=== PATIENT | male | born 1970 | race Caucasian/White ===

== ENCOUNTER → 2020-07-21 10:06 | Outpatient (BNVA) | payer OTHER, SELFPAY | PROVIDERS: Family Provider Nurse Practitioner Family; Visit Provider Nurse Practitioner Family | DX: R53.83 Other fatigue (principal); D64.9 Anemia, unspecified; E55.9 Vitamin D deficiency, unspecified; E78.2 Mixed hyperlipidemia; H65.193 Other acute nonsuppurative otitis media, bilateral; F51.01 Primary insomnia; Z79.899 Other long term (current) drug therapy | CPT/HCPCS: 80053; 80061; 80500; 81003; 82306; 82607; 82746; 83036; 83550; 83735; 84402; 84403; 84439; 84443; 85025 ==

== ENCOUNTER → 2020-07-22 08:41 | Outpatient (BNVA) | payer OTHER, SELFPAY | PROVIDERS: Family Provider Nurse Practitioner Family; Visit Provider Nurse Practitioner Family | DX: R53.83 Other fatigue (principal); D64.9 Anemia, unspecified; E55.9 Vitamin D deficiency, unspecified; E78.2 Mixed hyperlipidemia; Z00.00 Encounter for general adult medical examination without abnormal findings; F51.01 Primary insomnia; H65.193 Other acute nonsuppurative otitis media, bilateral; Z79.899 Other long term (current) drug therapy | CPT/HCPCS: 85045 ==

== ENCOUNTER → 2020-07-23 13:36 | Day surgery (SDC) | payer OTHER, SELFPAY ==
[2020-07-23 14:22] LABS: Basophils # 0.1 10^3/uL (0.0-0.1); Basophils % 1.3 %; Eosinophils # 0.1 10^3/uL (0.0-0.8); Eosinophils % 2.1 %; Hematocrit 25.7 % (42.0-52.0); Hemoglobin 6.6 g/dL (11.7-16.6); Lymphocytes # 1.8 10^3/uL (0.8-4.8); Lymphocytes % 26.1 %; Mean Corpuscular HGB Conc 25.7 g/dL (30.0-36.0); Mean Corpuscular Hemoglobin 15.3 pg (28.0-34.0); Mean Corpuscular Volume 59.5 fL (80-94); Mean Platelet Volume 9.1 fL (7.4-10.4); Monocytes # 0.4 10^3/uL (0.2-0.9); Monocytes % 6.4 %; Neutrophils # 4.31 10^3/uL (1.8-7.7); Nucleated Red Blood Cells % 0 %; Platelet Count 332 10^3/cmm (130-400); Red Blood Count 4.32 10^6/uL (4.1-5.3); Red Cell Distribution Width 18.2 % (12.1-15.1); White Blood Count 6.7 10^3/uL (4.0-10.0)
[2020-07-23 15:46] VITALS: RESP 18; TEMP 36.8
[2020-07-23 16:06] VITALS: BP 113/75; RESP 18; TEMP 37.1; O2SAT 98
[2020-07-23 16:09] VITALS: BP 110/71; RESP 18; TEMP 36.6
[2020-07-23 17:35] VITALS: BP 104/68; PULSE 72; RESP 18; TEMP 36.6
== END ==
PROVIDERS: Visit Provider Surgery
DX: D64.9 Anemia, unspecified (principal)
CPT/HCPCS: 36415; 36430; 85025; 86850; 86900; 86920; P9016

== ENCOUNTER → 2020-07-28 09:02 | Outpatient (BNVA) | payer OTHER, SELFPAY | PROVIDERS: PCP Nurse Practitioner Family; Visit Provider Surgery | DX: D64.9 Anemia, unspecified (principal); K62.5 Hemorrhage of anus and rectum; Z20.822 Contact with and (suspected) exposure to COVID-19 | CPT/HCPCS: 85025; 87635 ==

== ENCOUNTER 2020-07-31 08:35 | Day surgery (SDC) | payer OTHER, SELFPAY ==
[2020-07-29 14:18] VITALS: BMI 27.9
--- NOTE | 2020-07-31 08:50 | W.PM.OPSUD ---
Surgery/Procedure H&P Update DATE OF PROCEDURE: July 31, 2020 DATE H&P PERFORMED: 07/22/20 H&P UPDATE INFORMATION: I have reviewed H&P completed within last 30 days, I have examined patient prior to procedure and No changes to prior documentation PLANNED PROCEDURE: Operation Date: 07/31/20 10:05 Proposed Procedures p EGD/colon 47702 39957 D64.9 K62.5(Not Applicable) - Jamison Suarez MD s Colonoscopy(Not Applicable) - Jamison Suarez MD
--- NOTE | 2020-07-31 09:00 | ANES.PREANE2 ---
Pre-Anesthetic Assessment Pre-Anesthetic Assessment: Height/Weight: Height 1.85 m Weight 96.162 kg Proposed Procedure: Operation Date: 07/31/20 10:05 Proposed Procedures p EGD/colon 32624 47656 D64.9 K62.5(Not Applicable) - Jamison Suarez MD s Colonoscopy(Not Applicable) - Jamison Suarez MD Was Beta Priyank taken within 24 hours: N/A Was Clonidine taken within 24 hours: N/A Social: Social History: Tobacco and No alcohol Exam: Pre-Anes Outpt Exam: alert, oriented x 3, clear to auscultation bilaterally and regular rate & rhythm Airway: Submandibular: WNL Cervical ROM: WNL MP: 2 Pulmonary: Pulmonary: None reported CV/HEM: CV/HEM: None reported : : None reported Hepatic: Hepatic: None reported GI: GI: GERD Comments: Bright red bleeding per rectum s/p transfusion Metabolic: Metabolic: None reported Musc/skel: Musc/skel: None reported Neuropsych: Neuropsych: None reported Anesthetic Plan: ASA status: 2 Anesthesia: MAC PFSH Anesthesia PFSH: Medical History (Updated 07/22/20 @ 14:00 by Jamison Suarez MD) Anemia Hyperlipemia Insomnia Otitis media Vitamin D deficiency Surgical History (Updated 07/22/20 @ 14:00 by Jamison Suarez MD) History of colonoscopy 2019 Data Anesthesia Cardiac Studies: No Data to Display
[2020-07-31 09:46] VITALS: BP 121/73; PULSE 56; RESP 16; TEMP 36.1
[2020-07-31] MEDS: sodium chloride 0.9% 1,000 ML 30 ML IV (09:54)
[2020-07-31 10:49] VITALS: BP 126/72; PULSE 57; RESP 16; TEMP 36.2; O2SAT 100
--- NOTE | 2020-07-31 10:51 | ANE.PACU2 ---
Inpatient post-anesthesia follow up: Airway intact: Yes Vital signs: Temperature 97 F Pulse Rate 56 Respiratory Rate 16 Blood Pressure 121/73 Pulse Oximetry Oxygen Delivery Me thod Room Air Oxygen Flow Rate Fraction of Inspir ed Oxygen Hydration adequate: Yes Nausea and vomiting: No Pain level: 1 Mental status: Baseline
--- NOTE | 2020-07-31 10:53 | CT_ITS ---
WS: [id number] CT CHEST, ABDOMEN AND PELVIS WITH CONTRAST HISTORY: ASCENDING COLON MASS TECHNIQUE: Contiguous 5 mm axial imaging performed through the chest, abdomen and pelvis with IV cont rast, oral contrast has been provided. Coronal and sagittal reformats chest. Coronal and sagittal ref ormats through the abdomen and pelvis. All CT scans at [facility] use at least one of the se dose optimization techniques: automated exposure control; mA and/or kV adjustment per patient size (includes targeted exams where dose is matched to clinical indication); or iterative reconstruction. CONTRAST: Omnipaque 300; 95 mL IV. DLP: 1626.32 mGy.cm COMPARISON: None available. Chest CT: Lungs are well-aerated. No pulmonary nodules. There is a benign calcified granuloma at the RIGHT lung base. No pericardial or pleural effusions. Normal size pulmonary artery and aorta. Small m ediastinal lymph nodes. No adenopathy. Heart size is normal. Bilateral thyroid nodules in the lower lobes. Largest nodule in the RIGHT extends substernal measurin g 2.0 x 3[address]: Liver, spleen, gallbladder, pancreas, adrenal glands and aorta are negative. No metastati c disease within the liver. No adrenal mass. No adenopathy within the abdomen. Focal circumferential area of soft tissue thickening involving the cecum. Nodular soft tissue measure s at least 5.4 x 2.0 cm. The appendix is identified closely associated with the mass at the cecum but not obstructed. There are also several adjacent lymph nodes posterior to the cecum and along the RIG HT perirenal fascia. No additional colonic lesions or obstruction. Pelvic CT: No free fluid or adenopathy in the pelvis. There are no bladder is normal. No osteoblastic or osteolytic bone disease. CT/CT chest abd pel w con* IMPRESSION: 1. Cecal mass measuring 5.4 x 2.0 cm with adjacent subcentimeter lymph nodes. 2. Appendix is closely associated with the cecal mass with no obstruction. 3. Substernal thyroid with bilateral lower lobe nodules. Consider follow-up ul trasound of the thyroid for further evaluation. 4. No metastatic disease to the lungs, liver or adrenal glands.
[2020-07-31 11:20] VITALS: BP 125/71; PULSE 55; RESP 18; O2SAT 100
[2020-07-31 11:24] LABS: Basophils # 0.1 10^3/uL (0.0-0.1); Basophils % 1.9 %; Eosinophils # 0.3 10^3/uL (0.0-0.8); Eosinophils % 4.8 %; Hematocrit 35.8 % (42.0-52.0); Hemoglobin 9.1 g/dL (11.7-16.6); Lymphocytes # 1.4 10^3/uL (0.8-4.8); Lymphocytes % 23.3 %; Mean Corpuscular HGB Conc 25.4 g/dL (30.0-36.0); Mean Corpuscular Hemoglobin 17.1 pg (28.0-34.0); Mean Corpuscular Volume 67.3 fL (80-94); Mean Platelet Volume 9.5 fL (7.4-10.4); Monocytes # 0.5 10^3/uL (0.2-0.9); Monocytes % 7.9 %; Neutrophils # 3.61 10^3/uL (1.8-7.7); Neutrophils % 61.8 %; Nucleated Red Blood Cells % 0 %; Platelet Count 380 10^3/cmm (130-400); Red Blood Count 5.32 10^6/uL (4.1-5.3); Red Cell Distribution Width 28.7 % (12.1-15.1); White Blood Count 5.8 10^3/uL (4.0-10.0)
[2020-07-31 11:39] LABS: Anion Gap 12.1 (5-19); Blood Urea Nitrogen 16 mg/dL (6-20); Calcium 8.2 mg/dL (8.5-10.5); Carbon Dioxide 27 mmol/L (22-29); Chloride 104 mmol/L (98-107); Glomerular Filtration Rate 88.6 mL/min (90-130); Glucose 99 mg/dL (65-115); Osmolality Calculated 289 mOsm/kg (285-295); Potassium 4.1 mmol/L (3.5-5.1); Sodium 139 mmol/L (136-145)
[2020-07-31 12:03] LABS: Carcinoembryonic Antigen 1.7 ng/mL (0.0-4.7)
[2020-07-31] MEDS: iohexol 300 mg/mL 50 mL Btl IV (12:39)
[2020-07-31] MEDS: iohexol 300 mg/mL 100 mL Btl IV (12:39)
[2020-08-08 09:51] LABS: Miscellaneous Test See Scanned Lab Rpt
== END 2020-07-31 13:17 | disposition home or self-care (01) ==
PROVIDERS: PCP Nurse Practitioner Family; Visit Provider Surgery
PROC: 0DJD8ZZ Inspection of Lower Intestinal Tract, Via Natural or Artificial Opening Endoscopic (ICD-10-PCS; CPT 45378; 2020-07-31 10:05)
PROC: 0DJ08ZZ Inspection of Upper Intestinal Tract, Via Natural or Artificial Opening Endoscopic (ICD-10-PCS; CPT 43235; 2020-07-31 10:05)
DX: C18.9 Malignant neoplasm of colon, unspecified (principal); D64.9 Anemia, unspecified; K64.8 Other hemorrhoids; E78.5 Hyperlipidemia, unspecified
CPT/HCPCS: 36415; 45380; 71260; 74177; 80048; 82378; 85025; 88305; 88360; 96360; J2704; J7030; Q9967

== ENCOUNTER → 2020-08-01 15:07 | Outpatient (BNVA) | payer OTHER, SELFPAY | PROVIDERS: PCP Nurse Practitioner Family; Visit Provider Surgery | DX: Z20.822 Contact with and (suspected) exposure to COVID-19 (principal) | CPT/HCPCS: 87635 ==

== ENCOUNTER 2020-08-05 17:31 | Inpatient (IN) | payer OTHER, SELFPAY ==
[2020-08-04 16:59] VITALS: BMI 28.3
[2020-08-05] VITALS (14 sets, daily range): BP systolic 105–191; BP diastolic 48–86; PULSE 18–79; RESP 16–18; TEMP 36.3–37.4; O2SAT 94–100
[2020-08-05] MEDS: sodium chloride 0.9% 1,000 ML 30 ML IV (10:56)
[2020-08-05 10:57] LABS: Basophils # 0.1 10^3/uL (0.0-0.1); Basophils % 2.8 %; Eosinophils # 0.3 10^3/uL (0.0-0.8); Eosinophils % 5.5 %; Hematocrit 37.7 % (42.0-52.0); Hemoglobin 9.7 g/dL (11.7-16.6); Lymphocytes # 1.5 10^3/uL (0.8-4.8); Lymphocytes % 32.3 %; Mean Corpuscular HGB Conc 25.7 g/dL (30.0-36.0); Mean Corpuscular Hemoglobin 17.8 pg (28.0-34.0); Mean Corpuscular Volume 69.2 fL (80-94); Mean Platelet Volume 9.6 fL (7.4-10.4); Monocytes # 0.3 10^3/uL (0.2-0.9); Monocytes % 7.2 %; Neutrophils # 2.45 10^3/uL (1.8-7.7); Nucleated Red Blood Cells % 0 %; Platelet Count 450 10^3/cmm (130-400); Red Blood Count 5.45 10^6/uL (4.1-5.3); Red Cell Distribution Width 31.1 % (12.1-15.1); White Blood Count 4.7 10^3/uL (4.0-10.0)
--- NOTE | 2020-08-05 14:11 | P.ANESASSM_ITS ---
Pre-Anesthetic Assessment Pre-Anesthetic Assessment: Height/Weight: Height 1.85 m Weight 97.522 kg Temp Pulse Resp BP Pulse Ox 97.3 F L 67 18 119/71 100 08/05/20 10:29 08/05/20 10:29 08/05/20 10:29 08/05/20 10:29 08/05/20 10:29 Preop Diagnosis: Cecal cancer Proposed Procedure: Operation Date: 08/05/20 12:30 Proposed Procedures p Laparoscopic Right Hemicolectomy(Not Applicable) - Jamison Suarez MD Was Beta Priyank taken within 24 hours: N/A Was Clonidine taken within 24 hours: N/A Last intake: Intake Last Liquid Date 08/04/20 Last Liquid Time 22:00 Last Solid Date 08/03/20 Last Solid Time 18:00 Social: Social History: Tobacco (chews) and No alcohol Exam: Pre-Anes Outpt Exam: alert, oriented x 3, clear to auscultation bilatera lly and regular rate & rhythm Airway: Submandibular: WNL Cervical ROM: WNL MP: 2 Dentition: Full CV/HEM: CV/HEM: Anemia GI: GI: GERD Comments: Colon CA Anesthetic Plan: ASA status: 2 Anesthesia: General Risk of > 500 ml blood loss (7ml/kg in children): No Meds/Allergies Current Medications: Current Medications Generic Name Dose Route Start Last Admin Trade Name Freq PRN Reason Stop Dose Admin Sodium Chloride 1,000 mls @ 30 ml s/hr 08/05/20 10:15 08/05/20 10:56 Sodium Chloride 0.9% IV 08/06/20 10:14 30 mls/hr .Q24H RHONDA Administration PFSH Anesthesia PFSH: Medical History Adenocarcinoma of cecum Anemia Hyperlipemia Insomnia Otitis media Vitamin D deficiency Surgical History History of colonoscopy 2019 Data Anesthesia CBC & Chem 7: 08/05/20 10:40 Other Labs: Laboratory Results - last 48 hr 08/05/20 10:40 WBC 4.7 RBC 5.45 H Hgb 9.7 L Hct 37.7 L MCV 69.2 L MCH 17.8 L MCHC 25.7 L RDW 31.1 H Plt Count 450 H MPV 9.6 Neut % (Auto) 52.0 Lymph % (Auto) 32.3 [place] % (Auto) 7.2 Eos % (Auto) 5.5 Baso % (Auto) 2.8 Neut # (Auto) 2.45 Lymph # (Auto) 1.5 [place] # (Auto) 0.3 Eos # (Auto) 0.3 Baso # (Auto) 0.1 Nucleated RBC % (auto) 0 Nucleated RBCs # 0.0 Cardiac Studies: No Data to Display
--- NOTE | 2020-08-05 14:38 | W.PM.OPSUD ---
Surgery/Procedure H&P Update DATE OF PROCEDURE: August 05, 2020 DATE H&P PERFORMED: 08/01/20 H&P UPDATE INFORMATION: I have reviewed H&P completed within last 30 days, I have examined patient prior to procedure and No changes to prior documentation PREOP DIAGNOSIS: Cecal cancer PLANNED PROCEDURE: Operation Date: 08/05/20 12:30 Proposed Procedures p Laparoscopic Right Hemicolectomy(Not Applicable) - Jamison Suarez MD
[2020-08-05] MEDS: metroNIDAZOLE IV 500 MG/100 ML PREMIX 100 MG IV (15:05)
--- NOTE | 2020-08-05 17:41 | PM.OP ---
Operative Report Date of procedure: August 05, 2020 Pre-op Diagnosis: Cecal cancer Post-op Diagnosis: 1. Cecal cancer 2. No evidence of peritoneal carcinomatosis or liver metastasis Procedure Done: Laparoscopic right hemicolectomy with extracorporeal ileocolic anastomosis Specimens removed/disposition: Ileum, cecum, ascending colon, proximal transverse colon Surgeon: Jamison Suarez Anesthesia: General Estimated blood loss (mL): 50 IV fluids (mL): 800 Urine output (mL): 300 Condition: stable Disposition: PACU Procedure: The patient was taken to the operating room and intubated under general anesthesia after IV antibiotic had been administered. A Mcintosh catheter was placed and the abdomen was prepped and draped in a sterile manner. A 2 cm midline supraumbilical incision was made and using open Toro technique the peritoneal cavity was entered and an 11 mm port was placed and 15 mm of pneumoperitoneum was created. 10 mm 30? scope was introduced. 5 mm port was placed in the right upper quadrant, left upper quadrant and in the suprapubic area under direct visualization. The patient was placed in Trendelenburg position and steep tilt to the left placing the small bowel in the left side within the peritoneal cavity and the transverse colon was retracted superiorly. The cecum was retracted laterally and the tenting of the ileocolic pedicle was noted. The peritoneum overlying the pedicle was opened and a window created posterior to the pedicle just lateral to the third portion of the duodenum. Dissection was carried superiorly and lateral to the duodenum along the avascular plane. Using LigaSure the ileocolic pedicle was divided. The avascular plane was dissected laterally towards the right paracolic gutter and superiorly towards the hepatic flexure.The transverse mesocolon was divided using LigaSure and this was continued medially. The right branch of the mid colic vessels were skeletonized and divided with LigaSure. The anterior leaflet of the greater omentum was divided near the midpoint of the transverse colon to enter the lesser sac. The greater omentum was divided using LigaSure and the hepatic flexure was taken down. The dissection was carried along the line of Toldt until the ascending colon and down to ileum to completely free it up. The mesentery of the terminal ileum was divided using LigaSure .20 cc of saline mixed with 20 cc of 0.5% Marcaine mixed with 20 cc of Exparel was injected in the midclavicular line under laparoscopic visualization for a TAP block. At this point the pneumoperitoneum was released and the mobilized colon and small bowel was exteriorized through the supraumbilical incision which had been extended and a wound protector had been placed. Interrupted 4-0 Vicryl suture was placed to approximate the ileum to the transverse colon and enterotomies were created on the transverse colon and small bowel and and 75 mm blue load JORGITO stapler was introduced and fired creating a uaki-pu-puku stapled anastomosis. There was no bleeding noted from the staple line and enterotomies were grasped with Allis clamps and another load of 75 mm blue load JORGITO stapler was fired to resect the specimen distal to the enterotomies. 4-0 Vicryl sutures were placed on the intersection of the staple line. The bowel was reintroduced into the peritoneal cavity and the staple line was covered with omentum. All ports were removed under direct visualization and there was no bleeding noted from the port sites. The fascia at the midline incision was closed using running #1 loop PDS. The wound was irrigated with saline, and subcutaneous tissue approximated using 3-0 Vicryl suture and skin at all 4 port sites were closed with 4-0 Monocryl and Dermabond. The patient was transferred to the recovery room in stable condition with a Mcintosh catheter
[2020-08-05] MEDS: metoclopramide 5 mg/mL SDV 2 mL 10 MG IVP (17:53)
--- NOTE | 2020-08-05 18:23 | ANE.PACU2 ---
Inpatient post-anesthesia follow up: Airway intact: Yes Vital signs: Temperature 97.7 F Pulse Rate 66 Respiratory Rate 17 Blood Pressure 138/68 Pulse Oximetry 98 Oxygen Delivery Me thod Room Air Oxygen Flow Rate Fraction of Inspir ed Oxygen Hydration adequate: Yes Nausea and vomiting: No Pain level: 2 Mental status: Baseline
[2020-08-05] MEDS: HYDROcodone-acetaminophen 5-325 mg Tablet 1 TAB PO (18:50)
[2020-08-05] MEDS: sennosides-docusate Tablet 1 TAB PO (19:03)
[2020-08-05] MEDS: D5-NS 0.45% + KCL 20 mEq 20 MEQ/1,000 ML BAG 100 MEQ IV (19:03)
[2020-08-05 19:14] LABS: Add Urine Microscopic? YES; Amorphous Sediment Urine 4+ /hpf; Bacteria Urine TRACE /hpf; Bilirubin Urine Neg (Negative); Blood Urine Neg (Negative); Glucose Urine UA Norm (Normal); Ketones Urine 1+ (Negative); Leukocyte Esterase Urine Negative (Negative); Nitrate Urine Negative (Negative); Protein Urine Neg (Negative); RBC Urine 0-4 /hpf (0-2); Squamous Epithelial Cell Urine 0-4 /hpf (0-5); Uric Acid Crystals Urine 0-4 /hpf; Urine Appearance Cloudy (CLEAR); Urine Color Yellow (Yellow); Urobilinogen Urine Norm (Negative); WBC Urine 0-4 /hpf (0-5); pH Urine 5 (5-7)
[2020-08-05] MEDS: famotidine 20 mg/2 mL INJ IVP (19:51)
[2020-08-06] MEDS: metroNIDAZOLE IV 500 MG/100 ML PREMIX 100 MG IV ×2 (00:06→06:38)
[2020-08-06] MEDS: zolpidem 5 mg Tablet 10 MG PO ×2 (00:35→21:30)
[2020-08-06 01:20] VITALS: BP 123/72; PULSE 68; RESP 18; TEMP 37.3; O2SAT 97
[2020-08-06] MEDS: HYDROcodone-acetaminophen 5-325 mg Tablet 1 TAB PO ×4 (02:28→21:28)
[2020-08-06 02:48] LABS: Basophils % 0.2 %; Hemoglobin 8.9 g/dL (11.7-16.6); Lymphocytes # 0.9 10^3/uL (0.8-4.8); Lymphocytes % 8.8 %; Mean Corpuscular HGB Conc 26.2 g/dL (30.0-36.0); Mean Corpuscular Hemoglobin 18.2 pg (28.0-34.0); Mean Corpuscular Volume 69.7 fL (80-94); Monocytes # 0.6 10^3/uL (0.2-0.9); Monocytes % 5.7 %; Neutrophils # 8.23 10^3/uL (1.8-7.7); Nucleated Red Blood Cells % 0 %; Platelet Count 382 10^3/cmm (130-400); Red Blood Count 4.88 10^6/uL (4.1-5.3); Red Cell Distribution Width 30.5 % (12.1-15.1); White Blood Count 9.7 10^3/uL (4.0-10.0)
[2020-08-06 03:08] LABS: Anion Gap 12.2 (5-19); Blood Urea Nitrogen 8 mg/dL (6-20); Calcium 7.9 mg/dL (8.5-10.5); Carbon Dioxide 23 mmol/L (22-29); Chloride 107 mmol/L (98-107); Glomerular Filtration Rate 88.6 mL/min (90-130); Glucose 140 mg/dL (65-115); Osmolality Calculated 287 mOsm/kg (285-295); Potassium 4.2 mmol/L (3.5-5.1); Sodium 138 mmol/L (136-145)
[2020-08-06] MEDS: D5-NS 0.45% + KCL 20 mEq 20 MEQ/1,000 ML BAG 100 MEQ IV (04:46)
[2020-08-06 05:20] VITALS: BP 108/69; PULSE 61; RESP 17; TEMP 36.8; O2SAT 97
[2020-08-06] MEDS: famotidine 20 mg/2 mL INJ IVP ×2 (06:31→18:05)
[2020-08-06 07:51] VITALS: BP 99/60; PULSE 72; RESP 17; TEMP 37.1; O2SAT 100
[2020-08-06] MEDS: sennosides-docusate Tablet 1 TAB PO ×2 (08:14→18:04)
--- NOTE | 2020-08-06 09:57 | PM.PN ---
Subjective Subjective: Interval history: Patient states pain is controlled, denies any nausea or vomiting, tolerating clears, no flatus or BM Vitals/I&O/Wt Last Vital Signs Temp 98.7 F 08/06/20 07:51 Pulse 72 08/06/20 07:51 Resp 17 08/06/20 07:51 BP 99/60 08/06/20 07:51 Pulse Ox 100 08/06/20 07:51 08/05/20 08/06/20 08/06/20 22:59 06:59 14:59 Intake Total 1150 / 2321.667 1171.667 / 2321.667 340 / 340 Output Total 650 / 2250 1600 / 2250 Balance 500 / 71.667 -428.333 / 71.667 340 / 340 Weight last 48 hrs Weight 215 lb Physical Exam Narrative: EXAM NARRATIVE: Abdomen: Soft, mildly tender, incision clean dry and intact, nondistended Urinary Catheter Management^: Mcintosh: Cath Placed During This Visit: yes, but has since been removed by the nurse Reason for Continuing Indwelling Catheter: Perioperative Use in Selected Surgeries Urinary Catheter Date of Insertion: 08/05/20 Urinary Catheter Time of Insertion: 15:08 Date Urinary Catheter Removed: 08/06/20 Time Urinary Catheter Discontinued: 07:30 Data : 08/06/20 02:30 08/06/20 02:30 A&P Assessment and plan (1) S/P right hemicolectomy: 50-year-old male status post laparoscopic right hemicolectomy with postop ileus Decrease IV fluids to 30 cc/h Start clear liquid diet DC Mcintosh Ambulate ad [place]. 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
[2020-08-06 12:00] VITALS: BP 107/67; PULSE 62; RESP 16; TEMP 36.5; O2SAT 97
[2020-08-06 16:00] VITALS: BP 108/70; PULSE 74; RESP 18; TEMP 36.5; O2SAT 98
--- NOTE | 2020-08-06 17:51 | PC.PT ---
Have personally viewed patient ambulating in halls, several times today, 700 foot plus distances, gait is steady even and without deficit Patient lying on bed states has been making 6 laPS, 3 times today already, is planning to go again after resting, I have viewed this patient on 2 of his walks, and they were without deficit; patient states understanding of ambulating as requested he did this; also instructed patient in abdominal musculature function with sitting marching, and standing walk in place, patient had no further questions patient believes he needs no physical therapy intervention as does this therapist as well; DC physical therapy.
[2020-08-06] MEDS: enoxaparin 40 mg/0.4 mL Syringe SUBCUT (18:05)
[2020-08-06 19:47] VITALS: BP 113/72; PULSE 62; RESP 16; TEMP 36.9; O2SAT 98
[2020-08-07] VITALS: BP 108/65; PULSE 66; RESP 16; TEMP 36.5; O2SAT 94
[2020-08-07 03:01] LABS: Anion Gap 8.9 (5-19); Basophils # 0.1 10^3/uL (0.0-0.1); Basophils % 1.1 %; Blood Urea Nitrogen 8 mg/dL (6-20); Carbon Dioxide 27 mmol/L (22-29); Chloride 104 mmol/L (98-107); Creatinine Clr Calc Pharmacy 132.8384; Eosinophils # 0.1 10^3/uL (0.0-0.8); Eosinophils % 0.8 %; Glomerular Filtration Rate 101.5 mL/min (90-130); Glucose 92 mg/dL (65-115); Hematocrit 32.2 % (42.0-52.0); Hemoglobin 8.4 g/dL (11.7-16.6); Lymphocytes # 2.1 10^3/uL (0.8-4.8); Lymphocytes % 26.5 %; Mean Corpuscular HGB Conc 26.1 g/dL (30.0-36.0); Mean Corpuscular Hemoglobin 18.2 pg (28.0-34.0); Mean Corpuscular Volume 69.7 fL (80-94); Mean Platelet Volume 9.4 fL (7.4-10.4); Monocytes # 0.8 10^3/uL (0.2-0.9); Monocytes % 9.6 %; Neutrophils # 4.88 10^3/uL (1.8-7.7); Neutrophils % 61.7 %; Nucleated Red Blood Cells % 0 %; Osmolality Calculated 280 mOsm/kg (285-295); Platelet Count 342 10^3/cmm (130-400); Potassium 3.9 mmol/L (3.5-5.1); Red Blood Count 4.62 10^6/uL (4.1-5.3); Red Cell Distribution Width 30.8 % (12.1-15.1); Sodium 136 mmol/L (136-145); White Blood Count 7.9 10^3/uL (4.0-10.0)
[2020-08-07 03:52] VITALS: BP 115/68; PULSE 69; RESP 16; TEMP 36.7; O2SAT 94
[2020-08-07] MEDS: famotidine 20 mg/2 mL INJ IVP (06:35)
[2020-08-07 08:00] VITALS: BP 117/76; PULSE 75; RESP 17; TEMP 36.9; O2SAT 94
[2020-08-07] MEDS: ondansetron 2 mg/ML SDV 2 mL 4 MG IVP ×2 (09:41→16:39)
[2020-08-07] MEDS: sennosides-docusate Tablet 1 TAB PO (09:41)
--- NOTE | 2020-08-07 09:42 | P.PN_ITS ---
Subjective Subjective: Interval history: Patient had some abdominal pain with mild nausea denies any vomiting, had bowel movements today. He has not taken any pain medications. Vitals/I&O/Wt Last Vital Signs Temp 98.4 F 08/07/20 08:00 Pulse 75 08/07/20 08:00 Resp 17 08/07/20 08:00 BP 117/76 08/07/20 08:00 Pulse Ox 94 08/07/20 08:00 08/06/20 08/07/20 08/07/20 22:59 06:59 14:59 Intake Total 1120 / 2060 480 / 2060 60 / 60 Output Total 0 / 500 500 / 500 Balance 1120 / 1560 -20 / 1560 60 / 60 Physical Exam Narrative: EXAM NARRATIVE: Abdomen: Soft, nondistended, minimally tender, incision clean dry and intact Urinary Catheter Management^: Mcintosh: Cath Placed During This Visit: yes, but has since been removed by the nurse Reason for Continuing Indwelling Catheter: Perioperative Use in Selected Surgeries Urinary Catheter Date of Insertion: 08/05/20 Urinary Catheter Time of Insertion: 15:08 Date Urinary Catheter Removed: 08/06/20 Time Urinary Catheter Discontinued: 07:30 Data : 08/07/20 02:20 08/07/20 02:20 A&P Assessment and plan (1) S/P right hemicolectomy: 50-year-old male status post laparoscopic right hemicolectomy with postop ileus Advance to GI soft diet Lovenox for DVT prophylaxis Pepcid for GI prophylaxis discussed with the patient about going home today since he had bowel movements. Will advance him to a GI soft diet And if he feels up to it we could potentially go home this evening Status: Acute Attestations Medical Necessity Statement*: Status post right hemicolectomy with postop ileus, appears to be resolving Coding Level of Care Code Acute Orderly for Chg Fwd Diagnoses S/P right hemicolectomy Z90.49
[2020-08-07] MEDS: acetaminophen 325 mg Tablet 650 MG PO (09:43)
--- NOTE | 2020-08-07 09:49 | P.DS_ITS ---
Discharge Providers Date of Admission: 08/05/20 17:31 Date of Discharge: August 07, 2020 Attending Provider at Admission: Jamison Suarez MD Attending Provider at Discharge: Jamison Suarez MD Primary Care Provider: DORA Gordillo Diagnoses at Discharge Discharge Diagnosis (1) S/P right hemicolectomy: Status: Acute Reason for Visit Reason for Visit: Colonic mass Hospital Course Hospital Course This is a 50-year-old male diagnosed with cecal adenocarcinoma who underwent laparoscopic right hemicolectomy on 08/05/2020. By postop day 2 patient started having multiple bowel movements. At time of discharge his vital signs were stable, he is tolerating a GI soft diet and he had multiple bowel movements. His incision was clean dry and intact. Physical Exam Urinary Catheter Management^: Mcintosh: Cath Placed During This Visit: yes, but has since been removed by the nurse Reason for Continuing Indwelling Catheter: Perioperative Use in Selected Surgeries Urinary Catheter Date of Insertion: 08/05/20 Urinary Catheter Time of Insertion: 15:08 Date Urinary Catheter Removed: 08/06/20 Time Urinary Catheter Discontinued: 07:30 Discharge Data Data Completed and Pending: Pending at discharge Category Date Time Status ES surgery / GI i mages Routine Exams 08/05/20 13:37 Taken Basic Metabolic P ricci AM LABS Lab 08/08/20 04:00 Ordered Complete Blood Co unt w/Auto AM LABS Lab 08/08/20 04:00 Ordered Pathology: Surgic al [PTH] Routine Pth 08/05/20 17:07 Received Labs from last 24 hours 08/07/20 08/07/20 02:20 02:20 WBC 7.9 RBC 4.62 Hgb 8.4 L Hct 32.2 L MCV 69.7 L MCH 18.2 L MCHC 26.1 L RDW 30.8 H Plt Count 342 MPV 9.4 Neut % (Auto) 61.7 Lymph % (Auto) 26.5 [place] % (Auto) 9.6 Eos % (Auto) 0.8 Baso % (Auto) 1.1 Neut # (Auto) 4.88 Lymph # (Auto) 2.1 [place] # (Auto) 0.8 Eos # (Auto) 0.1 Baso # (Auto) 0.1 Nucleated RBC % (a uto) 0 Nucleated RBCs # 0.0 Sodium 136 Potassium 3.9 Chloride 104 Carbon Dioxide 27 Anion Gap 8.9 BUN 8 Creatinine 0.8 GFR Calculation 101.5 Glucose 92 Calculated Osmolal ity 280 L Calcium 8.0 L Vitals: Last Vital Signs Temp 98.4 F 08/07/20 08:00 Pulse 75 08/07/20 08:00 Resp 17 08/07/20 08:00 BP 117/76 08/07/20 08:00 Pulse Ox 94 08/07/20 08:00 Discharge Plan Discharge Patient Disposition: Home Condition: Stable Prescriptions: New Senna with Docusate Sodium 8.6-50 mg tablet 1 tab-cap PO BID Qty: 30 RF: 0 Zofran 4 mg tablet 4 mg PO Q6H PRN (Reason: nausea and vomiting) Qty: 20 RF: 0 hydrocodone-acetaminophen 5-325 mg tablet 1 tab PO Q6H PRN (Reason: pain) Qty: 20 RF: 0 Protonix 40 mg tablet,delayed release (DR/EC) 40 mg PO DAILY 28 Days Qty: 30 RF: 0 Continued zolpidem 10 mg tablet 10 mg PO ONCE 30 Days Qty: 30 RF: 2 Fergon 225 mg (27 mg iron) tablet 225 mg PO BID RF: 0 Discontinued pantoprazole [Protonix] 40 mg tablet,delayed release (DR/EC) 40 mg PO BID 30 Days Qty: 60 RF: 0 sucralfate [Carafate] 1 gram tablet 1 g PO BID 30 Days Qty: 60 RF: 0 erythromycin 500 mg tablet 500 mg PO ONCE Qty: 3 RF: 0 neomycin 500 mg tablet 1 g PO ONCE Qty: 6 RF: 0 Discharge Orders: Discharge Order (Routine); Ordered 08/07/20 Ordered By: Jamison Suarez Referrals: Jamison Suarez MD [Physician] - 08/18/20 10:30 am Patient Instructions: Hydrocodone/Acetaminophen (By mouth), Laxative, Stool Softeners (By mouth), Ondansetron (By mouth), Colectomy (GEN), Opioid Safety Activity Restrictions/Additional Instructions: Diet Advance to normal diet as tolerated, increase fluid intake as much as possible. Maintain a low fiber, soft diet Activity Avoid strenuous activity for 2 weeks but continue with daily activities including walking as tolerated. Do not lift more than 10 pounds for 2 weeks Return to work/school You can return to work/ school whenever you feel ready as long as you don?t have to lift more than 10 pounds at work. If you have paperwork that needs to be completed for time off from work, please contact my office Driving You can resume driving once you stop using narcotic pain medications, and transition to non-opioid pain medications like Tylenol, Motrin, Aleve, etc. Medications Pain Take opioid pain medications as prescribed and transition to non-opioid pain medications like Tylenol, Motrin, Aleve etc. over the next few days. The goal of the pain medications is to make the pain bearable and not to be pain free since you recently had surgery. Resume all home medications after surgery as per the medication reconciliation list Nausea Nausea is common after surgery, take nausea medications as needed and stay on a liquid bland diet until nausea resolves. Constipation The combination of surgery, anesthesia and pain medications can result in constipation. Take stool softeners as prescribed. If you do not have a bowel movement in 3 days, please take an egsa-ady-rhrmzwi laxative like MiraLAX to address the constipation. Shower It is ok to shower but avoid getting the wound wet for 48 hours after surgery. Do not soak in bathtub, swimming pool or hot tub for 2 weeks. Wound care The glue applied to the incision will peel slowly over the next two weeks. The stitches used are dissolvable and will not need to be removed. Do not apply antibiotics or other medications on the incision Problems with the wound You can develop some redness around the incision from bruising after surgery. If there is increasing pain, redness, tenderness around the incision with or without drainage, please contact my office to rule out an infection. Sometimes the skin at the incisions can separate, resulting in reopening of the wound. Cover the wound with antibiotic cream and sterile dressings and contact my office. Contact physician Call the office at [phone] during office hours or go the Emergency Room after hours for - ?Fever to 100.4 or greater ?Shaking chills ?Pain that increases over time ?Redness, warmth, or pus draining from incision sites ?Persistent nausea or inability to take in liquids Discharge Attestations Time Spent in Discharge Care*: less than 30 min Quality Metrics Clinical Quality Measures During this hospital stay, did patient experience: None Coding Level of Care Code Acute g FW DC note Diagnoses S/P right hemicolectomy Z90.49
[2020-08-07 12:00] VITALS: BP 117/78; PULSE 73; RESP 17; TEMP 37.1; O2SAT 95
[2020-08-07] MEDS: HYDROcodone-acetaminophen 5-325 mg Tablet 1 TAB PO (16:38)
[2020-08-07 17:17] VITALS: BP 117/78; PULSE 73; RESP 17; TEMP 37.1; O2SAT 95
== END 2020-08-07 17:18 | disposition home or self-care (01) | DRG 331 ==
LOC: MEDSURG 17:31
PROVIDERS: Admitting Provider Surgery; PCP Nurse Practitioner Family; Visit Provider Surgery
PROC: 0DTF4ZZ Resection of Right Large Intestine, Percutaneous Endoscopic Approach (ICD-10-PCS; CPT 44205; principal; 2020-08-05 12:00)
DX: C18.0 Malignant neoplasm of cecum (principal); D50.9 Iron deficiency anemia, unspecified; E78.5 Hyperlipidemia, unspecified; G47.00 Insomnia, unspecified; E55.9 Vitamin D deficiency, unspecified
CPT/HCPCS: 36415; 51702; 80048; 81001; 85025; 86850; 86900; 88309; 96372; C9290; J0690; J1100; J1650; J2405; J2550; J2704; J2710; J2765; J3010; J3490; J7030; S0030

== ENCOUNTER → 2020-11-17 16:01 | Outpatient (BNVA) | payer OTHER, SELFPAY | PROVIDERS: PCP Nurse Practitioner Family; Visit Provider Nurse Practitioner Family | DX: H66.93 Otitis media, unspecified, bilateral (principal); J32.9 Chronic sinusitis, unspecified; Z90.49 Acquired absence of other specified parts of digestive tract; D64.9 Anemia, unspecified | CPT/HCPCS: 80053; 83550; 85025 ==

== ENCOUNTER → 2021-06-18 08:50 | Outpatient (BNVA) | payer OTHER, SELFPAY | PROVIDERS: PCP Nurse Practitioner Family; Visit Provider Surgery | DX: Z20.822 Contact with and (suspected) exposure to COVID-19 (principal); Z11.52 Encounter for screening for COVID-19 | CPT/HCPCS: 87635 ==

== ENCOUNTER 2021-06-24 09:00 | Day surgery (SDC) | payer OTHER, SELFPAY ==
[2021-06-19 10:12] VITALS: BMI 29.0
--- NOTE | 2021-06-24 09:35 | P.ANESASSM_ITS ---
Pre-Anesthetic Assessment Height/Weight: Height 1.85 m Weight 99.79 kg Preop Diagnosis: diagnostic Operation Date: 06/24/21 11:00 Proposed Procedures p EGD 63683/70041/k21.9/c18.0/c18.9(Not Applicable) - Jamison Suarez MD s Colonoscopy(Not Applicable) - Jamison Suarez MD Familial anesthetic complications: None Was Beta Priyank taken within 24 hours: N/A Was Clonidine taken within 24 hours: N/A Social Alcohol (Over six alcoholic drinks consumed on weekends ) and No tobacco Exam alert, oriented x 3, clear to auscultation bilaterally and regular rate & rhythm Airway Submandibular: within normal limits Cervical ROM: within normal limits Mallampati: Class I Dentition: full History/ROS No significant complaints Pulmonary None reported CV/HEM None reported Polycythemia in setting of hx of anemia None reported Hepatic None reported GI Gastroesophageal Reflux Disease (Symptomatic on empty stomach) Hx of adenocarcinoma Metabolic None reported Musc/skel None reported Neuropsych None reported Anesthetic Plan ASA status: 2 Anesthesia: Anesthesia Evaluation and General Other: I discussed with the patient risks, goals, and benefits of MAC and general anesthesia. We discussed spectrum of MAC anesthesia including conversion to general as well as possibility of recall of intraoperative stimuli including discomfort/pain. Patient agrees to proceed with MAC. Risk of > 500 ml blood loss (7ml/kg in children): No Medications/Allergies Home Medications Medication Instructions Recorded Confirmed Last Taken Type zolpidem 10 mg tablet 10 mg PO ONCE 30 Days #30 tab 04/21/21 06/19/21 Unknown Rx pantoprazole 40 mg tablet,delayed 40 mg PO DAILY 06/19/21 06/19/21 Unknown History release Allergies Allergy/AdvReac Type Severity Reaction Status Date / Time No Known Allergies Allergy Verified 11/17/20 14:55 [facility] Anesthesia Medical History Adenocarcinoma of cecum Stage I T2 N0 M0 Anemia Hyperlipemia Insomnia Otitis media Vitamin D deficiency Surgical History History of colonoscopy 2019 S/P right hemicolectomy (08/05/20) Social History Smoking and tobacco status: never smoked Data Anesthesia Cardiac Studies: No Data to Display
[2021-06-24 09:43] VITALS: BP 132/88; PULSE 70; RESP 18; TEMP 36.3; O2SAT 98
[2021-06-24] MEDS: sodium chloride 0.9% 1,000 ML 30 ML IV (09:50)
--- NOTE | 2021-06-24 10:40 | W.PM.OPSFHP ---
Same Day Surgery H&P Indication for Procedure/HPI DATE OF PROCEDURE: June 24, 2021 CHIEF COMPLAINT/INDICATIONFOR SURGICAL PROCEDURE: egd/colon PREOP DIAGNOSIS: diagnostic PLANNED PROCEDURE: Operation Date: 06/24/21 11:00 Proposed Procedures p EGD [id number]/k21.9/c18.0/c18.9(Not Applicable) - Jamison Suarez MD s Colonoscopy(Not Applicable) - Jamison Suarez MD Medications/Allergies* Home Medications Medication Instructions Recorded Confirmed Type pantoprazole 40 mg tablet,delayed 40 mg PO DAILY 06/19/21 06/24/21 History release Allergies/Adverse Reactions Allergy/AdvReac Type Severity Reaction Status Date / Time No Known Allergies Allergy Verified 06/24/21 09:43 Current Medications: Generic Name Dose Route Start Last Admin Trade Name Freq PRN Reason Stop Dose Admin Sodium Chloride 1,000 mls @ 30 mls/hr 06/24/21 09:30 06/24/21 09:50 Sodium Chloride 0.9% IV 06/25/21 09:29 30 mls/hr .Q24H RHONDA Administration Pertinent History/Comorbid Conditions* Medical History (Updated 06/02/21 @ 10:54 by Jamison Suarez MD) 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
[2021-06-24 11:03] VITALS: BP 123/77; PULSE 84; RESP 16; TEMP 36.1; O2SAT 94
--- NOTE | 2021-06-24 11:06 | ANE.PACU2 ---
Documented by User: Everett Simms CRNA 06/24/21 11:06 Inpatient post-anesthesia follow up: Airway intact: Yes Vital signs: Temperature 97.3 F Pulse Rate 70 Respiratory Rate 18 Blood Pressure 132/88 Pulse Oximetry 98 Oxygen Delivery Me thod Room Air Oxygen Flow Rate Fraction of Inspir ed Oxygen Hydration adequate: Yes Nausea and vomiting: No Pain level: 1 Mental status: Baseline
[2021-06-24 11:20] VITALS: BP 132/99; PULSE 67; RESP 18; O2SAT 97
== END 2021-06-24 11:38 | disposition home or self-care (01) ==
PROVIDERS: PCP Surgery; Visit Provider Surgery
PROC: 0DJ08ZZ Inspection of Upper Intestinal Tract, Via Natural or Artificial Opening Endoscopic (ICD-10-PCS; CPT 43235; principal; 2021-06-24 11:00)
PROC: 0DJD8ZZ Inspection of Lower Intestinal Tract, Via Natural or Artificial Opening Endoscopic (ICD-10-PCS; CPT 45378; 2021-06-24 11:00)
DX: C18.9 Malignant neoplasm of colon, unspecified (principal); C18.0 Malignant neoplasm of cecum; K21.9 Gastro-esophageal reflux disease without esophagitis; K20.90 Esophagitis, unspecified without bleeding; K29.70 Gastritis, unspecified, without bleeding; E78.5 Hyperlipidemia, unspecified; Z90.49 Acquired absence of other specified parts of digestive tract; K57.30 Diverticulosis of large intestine without perforation or abscess without bleeding; K64.8 Other hemorrhoids
CPT/HCPCS: 43239; 45378; 88305; J2704; J7030

== ENCOUNTER → 2022-06-16 09:46 | Outpatient (BNVA) | payer OTHER, SELFPAY | PROVIDERS: PCP Family Medicine; Visit Provider Family Medicine | DX: R03.0 Elevated blood-pressure reading, without diagnosis of hypertension (principal); E78.5 Hyperlipidemia, unspecified; Z12.5 Encounter for screening for malignant neoplasm of prostate; G47.00 Insomnia, unspecified | CPT/HCPCS: 80053; 80061; 83036; 84443; 85025; G0103 ==

== ENCOUNTER → 2023-05-27 09:52 | Outpatient (BNVA) | payer OTHER, SELFPAY | PROVIDERS: PCP Family Medicine; Visit Provider Nurse Practitioner Family | DX: Z79.899 Other long term (current) drug therapy (principal); R53.83 Other fatigue; E78.2 Mixed hyperlipidemia; D64.9 Anemia, unspecified; M79.606 Pain in leg, unspecified; F51.01 Primary insomnia; Z13.6 Encounter for screening for cardiovascular disorders; Z12.5 Encounter for screening for malignant neoplasm of prostate | CPT/HCPCS: 80053; 80061; 81003; 82607; 82728; 83036; 83550; 83735; 84443; 85025; G0103 ==

== ENCOUNTER → 2025-04-08 11:09 | Outpatient (BNVA) | payer OTHER, SELFPAY | PROVIDERS: PCP Nurse Practitioner Family; Visit Provider Nurse Practitioner Family | DX: E78.2 Mixed hyperlipidemia (principal); E55.9 Vitamin D deficiency, unspecified; Z79.899 Other long term (current) drug therapy | CPT/HCPCS: 80053; 80061; 82652; 85025; G0103 ==